=== PATIENT | female | born 1990 | race Two or more races ===

== ENCOUNTER → 2018-05-21 | Emergency (ER) | payer MEDICAID | END | disposition left against medical advice (07) | LOC: ER 21:20 | DX: R22.0 Localized swelling, mass and lump, head (principal); Z53.21 Procedure and treatment not carried out due to patient leaving prior to being seen by health care provider ==

== ENCOUNTER 2023-10-13 12:33 | Emergency (ER) | payer MEDICAID ==
[~2023-10-13] VITALS: Ht 154.9 cm; Wt 76.6 kg
[2023-10-13 14:06] VITALS: BP 140/93; PULSE 124; RESP 20; TEMP 97; O2SAT 96
[2023-10-13 14:28] LABS: Urine Bacteria MOD /hpf (None Seen); Urine Blood Negative /uL (Negative); Urine Clarity Clear (Clear); Urine Color Colorless (Yellow); Urine Protein, UAD Negative (Negative); Urine Specific Gravity 1.024 (1.001-1.035); Urine Urobilinogen Normal (Negative); Urine WBC 2 /hpf (0 - 5); Urine pH 6.5 (5.0-8.0)
[2023-10-13] MEDS: KETOROLAC TROMETH 60MG/2ML VIAL IM ONE (14:38)
[2023-10-13] MEDS ORDERED: BACL10TA PO (14:42)
[2023-10-13] MEDS ORDERED: IBUP-1456 PO (14:42)
[2023-10-13] MEDS ORDERED: BACDST PO (15:06)
[2023-10-13] MEDS ORDERED: METF-370 PO (15:06)
== END 2023-10-13 15:11 | disposition home or self-care (01) ==
LOC: ER 12:33
DX: G89.29 Other chronic pain (principal); M54.59 Other low back pain; M51.36 Other intervertebral disc degeneration, lumbar region; N30.00 Acute cystitis without hematuria; F41.9 Anxiety disorder, unspecified; E11.9 Type 2 diabetes mellitus without complications; Z98.890 Other specified postprocedural states; Z79.899 Other long term (current) drug therapy
CPT/HCPCS: 81001; 81025; 96372; 99283; J1885

== ENCOUNTER 2024-05-15 19:44 | Emergency (ER) | payer MEDICAID ==
[~2024-05-15] VITALS: Ht 152.4 cm; Wt 65.0 kg
[~2024-05-15 19:44] MED LIST: BACDST PO; IBUP-1456 PO; METF-370 PO
[2024-05-15 21:23] LABS: Basophils # (auto) 0.1 10 ^3/uL (0-0.2); Basophils % (auto) 0.4 % (0.0-2.0); Eosinophils # (auto) 0 10 ^3/uL (0-0.8); Hematocrit 45.2 % (36.0-46.0); Hemoglobin 15.3 g/dL (12.2-16.2); Lymphocytes % (auto) 6.6 % (10.0-50.0); Mean Corpuscular Hemoglobin 34.3 pg (28.0-32.0); Mean Corpuscular Hgb Conc. 33.8 g/dL (32.0-36.0); Mean Corpuscular Volume 101.4 fL (80.0-100.0); Monocytes # (auto) 1.2 10 ^3/uL (0-1.3); Monocytes % (auto) 7.9 % (0.0-12.0); Neutrophils # (auto) 12.8 10 ^3/uL (1.6-8.6); Neutrophils % (auto) 85.1 % (37.0-80.0); Nucleated Red Blood Cells % 0.1 %; Platelet Count (auto) 316 10^3/uL (140-450); Red Blood Cells 4.46 10^6/uL (4.0-5.20); Red Cell Distribution Width 13.1 % (11.8-14.3); White Blood Cell 15.1 10^3/uL (4.4-10.8)
[2024-05-15 21:39] LABS: Alanine Aminotransferase 23 U/L (7-40); Albumin 5.1 g/dL (3.2-4.8); Alkaline Phosphatase 102 U/L (46-116); Anion Gap 14 (5-15); Aspartate Aminotransferase 22 U/L (13-40); Bilirubin, Total 0.4 mg/dL (0.2-1.0); Blood Alcohol < 3.0 mg/dL (<10); Blood Urea Nitrogen 9 mg/dL (9-23); Carbon Dioxide 21 mmol/L (20-30); Chloride 99 mmol/L (98-107); Potassium 3.8 mmol/L (3.5-5.1); Sodium 134 mmol/L (136-145); Total Protein 7.9 g/dL (5.7-8.2)
[2024-05-15 21:40] LABS: Glucose 447 mg/dL (74-106)
[2024-05-15 22:43] LABS: Amphetamine Screen, Urine Neg (NEGATIVE)
[2024-05-15 22:44] LABS: Barbiturate Scree,Urine Neg (NEGATIVE); Benzodiazephine Screen, Urine Neg (NEGATIVE); Cannabinoid Screen, Urine Neg (NEGATIVE); Cocaine Screen, Urine Neg (NEGATIVE); Opiate Scree,Urine Pos (NEGATIVE); Phencyclidine Screen, Urine Neg (NEGATIVE); Urine Amorphous Crystal FEW /hpf (None Seen); Urine Bacteria MANY /hpf (None Seen); Urine Blood TRACE /uL (Negative); Urine Clarity Turbid (Clear); Urine Color Colorless (Yellow); Urine Mucus FEW (None Seen); Urine Protein, UAD TRACE (Negative); Urine Urobilinogen Normal (Negative); Urine WBC 1 /hpf (0 - 5)
[2024-05-15 23:15] VITALS: TEMP 98.7
[2024-05-16] MEDS: InsuLIN REG 1unit/0.01ml Soln (100units/ml) SC ONE (01:17)
[2024-05-16 01:20] VITALS: BP 122/81; PULSE 108; RESP 12; O2SAT 95
== END 2024-05-16 01:30 | disposition home or self-care (01) ==
LOC: ER 19:44 → EDBD 19:44 → ER 05-16 01:30
DX: R41.82 Altered mental status, unspecified (principal); R10.2 Pelvic and perineal pain; F41.9 Anxiety disorder, unspecified; F19.10 Other psychoactive substance abuse, uncomplicated; E11.65 Type 2 diabetes mellitus with hyperglycemia; Z79.899 Other long term (current) drug therapy
CPT/HCPCS: 36415; 80053; 80307; 80320; 81001; 82962; 84702; 85025; 96372; 99283; J1815